=== PATIENT | male | born 1975 | race Caucasian/White ===

== ENCOUNTER → 2019-11-11 11:43 | Outpatient (CLI) | payer OTHER, SELFPAY ==
--- NOTE | 2019-11-11 | DI.MRI.S_ITS ---
PROCEDURE: MR LUMBAR SPINE WO CON INDICATIONS: Low back pain TECHNIQUE: Noncontrast sagittal T1 spin echo and T2 fast echo, sagittal STIR, axial T1 and T2 fast spin echo through the lumbar spine. In cases with scoliosis, additional coronal T2 fast spin echo may be performed. COMPARISON: [facility], CT, ABDOMEN/PELVIS WITH CONTRAST, 10/31/2016, 13:49. FINDINGS: Image quality: Diagnostic Alignment and Curvature: There is normal bony alignment. Bone Marrow: Marrow is of normal overall signal. No acute vertebral body compression fractures. Spinal Cord: Conus medullaris terminates at the L1 level. Visualized cord demonstrates normal signal and size. Paraspinous Soft Tissues: No paravertebral masses. T12-L1: Normal appearance. L1-L2: The disc height and disc signal are relatively well-preserved. There is a central/right disc protrusion, as on series 5 image 9. There is associated mild to moderate central canal narrowing. No significant neural foraminal narrowing is seen. L2-L3: No significant abnormality is seen. L3-L4: Level within normal limits. L4-L5: The disc height and disc signal are relatively well-preserved. Mild to moderate disc bulge is seen. Mild facet joint hypertrophy is seen. There is moderate right-sided and at least moderate left-sided neural foraminal narrowing seen. There is a degree of compression seen upon the exiting L4 nerve roots, left worse than right. Mild central canal narrowing is seen. L5-S1: Mild disc bulge is seen, with a mild central disc extrusion, with mild superior migration of the disc material. Mild facet joint hypertrophy is seen. Mild to moderate right-sided and at least moderate left-sided neural foraminal narrowing can be seen. There is a mild degree of compression seen upon the exiting left L5 nerve root. Mild to moderate central canal narrowing is seen. IMPRESSION: Focal L4-L5 and L5-S1 degenerative change. Focal central/right L1-L2 disc protrusion. Dictated by: Bj Malik M.D. on 11/11/2019 at 11:54 Approved by: Bj Malik M.D. on 11/11/2019 at 11:57
== END ==
PROVIDERS: PCP Nurse Practitioner Family; Visit Provider Nurse Practitioner Family
DX: M47.816 Spondylosis without myelopathy or radiculopathy, lumbar region (principal); M47.817 Spondylosis without myelopathy or radiculopathy, lumbosacral region; M51.26 Other intervertebral disc displacement, lumbar region
CPT/HCPCS: 72148

== ENCOUNTER 2023-11-03 07:30 | Outpatient (RCR) | payer OTHER, SELFPAY ==
--- NOTE | 2023-10-02 14:29 | OT.OP.EVAL ---
Visit Care Team Role Provider Type CHRISTOPHER Flannery Family Provider Non-Staff Primary Care Provider Specialty: Family Practice Address: [address] [address], [place], [address] Fax: Email: Win Patton MD Attending Provider Non-Staff Referring Provider Specialty: Orthopedic Surgery Address: [facility], [facility] [place], [address] Fax: Email: Occupational Therapy Initial Evaluation OT Outpatient Adult Evaluation Start: 10/02/23 13:59 Freq: Status: Active Protocol: Document 10/02/23 13:59 AMS (Rec: 10/02/23 14:29 AMS [id number]) General Information - Adult Visit Number Eval; 0/12 visits Plan of Care Dates 10/02/23 - 10/30/23 Insurance Information Prime; EVAL ONLY; * Auth 12 visits Visit Start Time 12:25 Visit Stop Time 13:00 Total Visit Minutes 35 Treatment Setting Outpatient Care Note Type Initial Evaluation Identification Confirmed Yes Identification Confirmed By Self Goals Assisted Goals 1. Lb will be modified independent with execution of home exercise program utilizing provided written and visual instructions from therapist. 2. Lb will present with increased ability to participate in meaningful activities, as evidenced by the followina. Lb will indicate 1 or less out of 10 on the pain scale relative to volar surface of R wrist. 2b. Lb will obtain a QuickDASH UE Outcome Measure score of 10.00 or less. 2c. Lb will obtain a QuickDASH UE Outcome Measure/ Work Module Score of 15.00 or less. Assessment/Plan Treatment Assessment Lb is a 48 year-old right hand dominant male referred to outpatient OT secondary to CTR (surgery was performed in late July). 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 Some discomfort w/ active WB noted, as well as some tactile sensitivities. Medical history is significant for L CTS, gout (med managed), and generalized pain/discomfort ( managed by taking Motrin). On the whole body Pain Assessment Grid, Lb indicated 1, 3-4/ 10 relative to volar R wrist pain/discomfort. QuickDASH UE Outcome Measure Score = 13.63; QuickDASH UE Work Module Score = 25.00. Denied participation in regular exercise routine/program. 60 degrees active bilateral wrist flex. 58 degrees active R wrist ext vs 62 degrees active L wrist ext. [address] active bilateral wrist [address]. 20 degrees active bilateral wrist UD. Dynamometer II publishing manager strength results w/ elbows in 90 degrees flexion: 52.0# of force R publishing manager vs 103.0# of force L publishing manager. Pinchometer strength test results: 22.5# of force R lateral silva pinch vs 22.0# of force L lateral silva pinch; 13.0# of force R tip pinch vs 16.0# of force L tip pinch; 20.0# of force R 3- jaw pinch vs 18.5# of force L 3-jaw pinch. Lb denied any concerns re: wrist weakness. Mild swelling at site of surgery; denied icing wrist. Denied any tightness/stiffness w/ tendon gliding. Outpatient OT is recommended to address mild swelling, weakness, and to establish home exercise program. Home Exercise Program 10/02/23 = Reviewed scar tissue mobilization. Instructed in passive wrist ext via forearm supination w/ wrist ext vs modified prayer pose w/ hold of 20 sec. Discussed use of gloves w/ gel pads and/or use of gel pad for active weight bearing. Length of treatment (weeks) 4 Plan of Care Start Date 10/02/23 Plan of Care End Date 10/30/23 Therapeutic Contents Active Range of Motion, Functional Activities,Home Exercise Program,Joint Protection,Manual Therapy, Education,Neurodevelopment Treatment,Neuromuscular Re- Education,Self-Care,Stretching /Flexibility Activities, Therapeutic Activities, Therapeutic Exercises, Modalities Modalities As Needed,As Prescribed Additional Types of Modalities Heat/Ice/Contrast baths/ Paraffin/Ultrasound Patient Recommendations Continue with Current Program, Advance per Rehabilitation Protocol
--- NOTE | 2023-10-07 15:14 | OT.OP.TRT ---
Visit Care Team Role Provider Type CHRISTOPHER Flannery Family Provider Non-Staff Primary Care Provider Specialty: Family Practice Address: [address] [address], [place], [address] Fax: Email: Win Patton MD Attending Provider Non-Staff Referring Provider Specialty: Orthopedic Surgery Address: [facility], [facility] [place], [address] Fax: Email: Occupational Therapy Treatment Note OT Outpatient Treatment Note - Adult Start: 10/02/23 13:59 Freq: Status: Active Protocol: Document 10/07/23 15:01 AMS (Rec: 10/07/23 15:13 [facility] [id number]) OT Outpatient Adult Treatment Note Session Time Visit Start Time 12:30 Visit Stop Time 13:00 Total Visit Minutes 30 Visit Information Visit Number 12/05 visits authorized Plan of Care Dates 10/02/23 - 10/30/23 Insurance Information Prime; EVAL ONLY; * Auth 12 visits Setting Treatment Setting Outpatient Care Visit Type Note Type Treatment Note General Information General Information Lb is a 48 year-old right hand dominant male referred to outpatient OT secondary to CTR (surgery was performed in late July). 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 Some discomfort w/ active WB noted, as well as some tactile sensitivities. Medical history is significant for L CTS, gout (med managed), and generalized pain/discomfort ( managed by taking Motrin). - Subjective Identification Type Name Identification Reconciled With Medical Record Observations (+) carry-over of scar tissue mobilization. Continued discomfort reported w/ weight bearing; crepitus reported of ulnar right wrist w/ active formation of fist w/ reported pain/discomfort w/ palpation between 4th and 5th digit metacarpals. Report of discomfort reproduction w/ MCPJ flex and IPJ ext. Patient/Caregiver Compliance with Home Excellent Exercise Program - Objective Objective Measurements Please refer to below for progress towards meeting established OT goals: Halfway Goals 1. Lb will be modified independent with execution of home exercise program utilizing provided written and visual instructions from therapist. 2. Lb will present with increased ability to participate in meaningful activities, as evidenced by the followina. Lb will indicate 1 or less out of 10 on the pain scale relative to volar surface of R wrist. 2b. Lb will obtain a QuickDASH UE Outcome Measure score of 10.00 or less. 2c. Lb will obtain a QuickDASH UE Outcome Measure/ Work Module Score of 15.00 or less. - Treatment 3 Descriptor Ice massage x 3 minutes. Discomfort reported; thus, treatment ceased. 2 Descriptor Scar tissue mobilization reviewed and completed by clinician. 1 Descriptor Ultrasound. Addressing inflammation/swelling at site of surgery. Skin intact pre- and post- treatment. Denial of pain/discomfort w/ modality use. Use of pulsed setting, 20 % duty cycle, 2.0w/cm2 x 10 minutes. - Assessment Assessment of Improvement (+) carry-over of scar tissue mobilization. (+) response to ultrasound treatment. Poor tolerance for ice massage; thus, treatment ceased. Recommend inquiring about any scar tissue sensitivities. Continued outpatient OT is recommended to address mild swelling, weakness, and to establish home exercise program; recommend transition to HEP if there are no ongoing complaints of distal UE weakness/hand weakness, scar sensitivities and/or an increase of pain/discomfort limiting functional use of the R hand and/or with participation in meaningful activities (w/ and/or in the workplace). Home Exercise Program 10/02/23 = Reviewed scar tissue mobilization. Instructed in passive wrist ext via forearm supination w/ wrist ext vs modified prayer pose w/ hold of 20 sec. Discussed use of gloves w/ gel pads and/or use of gel pad for active weight bearing. - Plan Therapy Recommendations Advance per Rehabilitation Protocol Additional Therapy Recommendations Transition to HEP
--- NOTE | 2023-11-03 14:28 | OT.OPPOC ---
Physical, Occupational & Speech Therapy At [facility] Lb Montoya [id number] 1975 Visit Care Team Role Provider Type CHRISTOPHER Flannery Family Provider Non-Staff Primary Care Provider Address: [address] [place] [address], [place], [address] Fax: Win Patton MD Attending Provider Non-Staff Referring Provider Address: [facility], [address] [place] [address], [id number] Fax: Occupational Therapy Plan of Care OT Outpatient Adult Evaluation Start: 10/02/23 13:59 Freq: Status: Active Protocol: Document 10/02/23 13:59 AMS (Rec: 10/02/23 14:29 [facility] [id number]) General Information - Adult Visit Information Visit Number Eval; 0/12 visits Plan of Care Dates 10/02/23 - 10/30/23 Insurance Information Prime; EVAL ONLY; * Auth 12 visits Session Time Visit Start Time 12:25 Visit Stop Time 13:00 Total Visit Minutes 35 Setting Treatment Setting Outpatient Care Visit Type Note Type Initial Evaluation Identification Identification Confirmed Yes Identification Confirmed By Self Goals Alf Goals Alf Goals 1. Lb will be modified independent with execution of home exercise program utilizing provided written and visual instructions from therapist. 2. Lb will present with increased ability to participate in meaningful activities, as evidenced by the followina. Lb will indicate 1 or less out of 10 on the pain scale relative to volar surface of R wrist. 2b. Lb will obtain a QuickDASH UE Outcome Measure score of 10.00 or less. 2c. Lb will obtain a QuickDASH UE Outcome Measure/ Work Module Score of 15.00 or less. Assessment/Plan Assessment Treatment Assessment bL is a 48 year-old right hand dominant male referred to outpatient OT secondary to CTR (surgery was performed in late July). 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 Some discomfort w/ active WB noted, as well as some tactile sensitivities. Medical history is significant for L CTS, gout (med managed), and generalized pain/discomfort ( managed by taking Motrin). On the whole body Pain Assessment Grid, Lb indicated 1, 3-4/ 10 relative to volar R wrist pain/discomfort. QuickDASH UE Outcome Measure Score = 13.63; QuickDASH UE Work Module Score = 25.00. Denied participation in regular exercise routine/program. 60 degrees active bilateral wrist flex. 58 degrees active R wrist ext vs 62 degrees active L wrist ext. [address] bilateral wrist [address]. 20 degrees active bilateral wrist UD. Dynamometer II slab inspector strength results w/ elbows in 90 degrees flexion: 52.0# of force R slab inspector vs 103.0# of force L slab inspector. Pinchometer strength test results: 22.5# of force R lateral silva pinch vs 22.0# of force L lateral silva pinch; 13.0# of force R tip pinch vs 16.0# of force L tip pinch; 20.0# of force R 3- jaw pinch vs 18.5# of force L 3-jaw pinch. Lb denied any concerns re: wrist weakness. Mild swelling at site of surgery; denied icing wrist. Denied any tightness/stiffness w/ tendon gliding. Outpatient OT is recommended to address mild swelling, weakness, and to establish home exercise program. Home Exercise Program 10/02/23 = Reviewed scar tissue mobilization. Instructed in passive wrist ext via forearm supination w/ wrist ext vs modified prayer pose w/ hold of 20 sec. Discussed use of gloves w/ gel pads and/or use of gel pad for active weight bearing. Plan Length of treatment (weeks) 4 Plan of Care Start Date 10/02/23 Plan of Care End Date 10/30/23 Therapeutic Contents Active Range of Motion, Functional Activities,Home Exercise Program,Joint Protection,Manual Therapy, Education,Neurodevelopment Treatment,Neuromuscular Re- Education,Self-Care,Stretching /Flexibility Activities, Therapeutic Activities, Therapeutic Exercises, Modalities Modalities As Needed,As Prescribed Additional Types of Modalities Heat/Ice/Contrast baths/ Paraffin/Ultrasound Patient Recommendations Continue with Current Program, Advance per Rehabilitation Protocol Functional Wrist/Hand Scan Hand Side Sensory Assessment Sensory Profile2 OT Outpatient Treatment Note - Adult Start: 10/02/23 13:59 Freq: Status: Active Protocol: Document 11/03/23 14:03 AMS (Rec: 11/03/23 14:28 AMS [id number]) OT Outpatient Adult Treatment Note Session Time Visit Start Time 07:40 Visit Stop Time 08:15 Total Visit Minutes 35 Visit Information Visit Number 2/12 visits authorized Plan of Care Dates 10/30/23 - 11/27/23 Insurance Information Prime; EVAL ONLY; * Auth 12 visits Setting Treatment Setting Outpatient Care Visit Type Note Type Progress Note General Information General Information Lb is a 48 year-old right hand dominant male referred to outpatient OT secondary to CTR (surgery was performed in late July). 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 Some discomfort w/ active WB noted, as well as some tactile sensitivities. Medical history is significant for L CTS, gout (med managed), and generalized pain/discomfort ( managed by taking Motrin). - Subjective Identification Type Name Identification Reconciled With Medical Record Observations (+) carry-over of scar tissue mobilization. Crepitus reported of ulnar right wrist w/ active formation of fist w/ reported pain/discomfort w/ palpation between 4th and 5th digit metacarpals. Report of discomfort reproduction w/ MCPJ flex and IPJ ext. QuickDASH UE Outcome Measure Score = 11.36; QuickDASH Work Module Score = 12.5; Hand/ Wrist Pain Assessment Grid completed w/ indication of 1/ 10 relative to volar medial surface of R palm/at site of scar/surgery and between 4th adn 5th digit metacarpals. Patient/Caregiver Compliance with Home Excellent Exercise Program - Objective Objective Measurements Please refer to below for progress towards meeting established OT goals: Alf Goals 1. Lb will be modified independent with execution of home exercise program utilizing provided written and visual instructions from therapist. 11/03/23 = 75% met 2. Lb will present with increased ability to participate in meaningful activities, as evidenced by the followina. Lb will obtain a QuickDASH UE Outcome Measure score of 10.00 or less. = Score = 11.36 2c. Lb will obtain a QuickDASH UE Outcome Measure/ Work Module Score of 15.00 or less. 11/03/23 = Score = 12.5 GOALS MET Lb will indicate 1 or less out of 10 on the pain scale relative to volar surface of R wrist. *MET 11/03/23 - Treatment 3 Descriptor Ice massage x 3 minutes. 2 Descriptor Scar tissue mobilization. Discussed use of spherical object and/or massage tool (as used in treatment session). 1 Descriptor Ultrasound. Addressing inflammation/swelling at site of surgery. Skin intact pre- and post- treatment. Denial of pain/discomfort w/ modality use. Use of pulsed setting, 20 % duty cycle, 2.0w/cm2 x 10 minutes. - Assessment Assessment of Improvement Lb has made progress since time of initial evaluation; he is presenting with decreased pain/discomfort (1/10 versus 1 ,3-4/10); increased ability to participate in meaningful and functional tasks w/ use of the R hand (QuickDASH UE Outcome Measure Score = 11.36 vs initial 13.63; QuickDASH UE Work Module Score = 12.5 vs initial 25.00); and increased slab inspector strength (82.0# of force R slab inspector versus initial 52.0# of force and 123.0# of force L slab inspector versus initial 103.0# of force). He is actively utilizing the R hand on a daily basis and is executing scar tissue mobilization. Lb has positively responded to ultrasound modality use and has requested follow-up treatment post- holidays given busy schedule. Home Exercise Program 11/03/23= Discussed consideration of contrast baths for swelling management, as well as use of ball/half ball massage tool for scar tissue mobilization. 10/02/23 = Reviewed scar tissue mobilization. Instructed in passive wrist ext via forearm supination w/ wrist ext vs modified prayer pose w/ hold of 20 sec. Discussed use of gloves w/ gel pads and/or use of gel pad for active weight bearing. - Plan Therapy Recommendations Advance per Rehabilitation Protocol Additional Therapy Recommendations Transition to HEP Comment 4 weeks Frequency of Treatment Once a Week Electronically Signed by: Lay Jernigan OT 11/03/23 8165 If you are in agreement with this Plan of Care, please return a signed and dated copy. I have reviewed this Plan of Care and certify that the skilled therapy services above are required to meet the patient?s needs. Physician Signature Date Printed Name and Credentials Clinical Instructor Signature Printed Name and Credentials
--- NOTE | 2023-12-05 09:29 | OT.OP.DC ---
Visit Care Team Role Provider Type CHRISTOPHER Flannery Family Provider Non-Staff Primary Care Provider Address: [address] [address], [place], [address] Fax: Email: Win Patton MD Attending Provider Non-Staff Referring Provider Address: [facility], [facility] [address], [place], [address] Fax: Email: OT Outpatient OT Outpatient Adult Evaluation Start: 10/02/23 13:59 Freq: Status: Active Protocol: Document 10/02/23 13:59 AMS (Rec: 10/02/23 14:29 AMS [id number]) General Information - Adult Visit Information Visit Number Eval; 0/12 visits Plan of Care Dates 10/02/23 - 10/30/23 Insurance Information Prime; EVAL ONLY; * Auth 12 visits Session Time Visit Start Time 12:25 Visit Stop Time 13:00 Total Visit Minutes 35 Setting Treatment Setting Outpatient Care Visit Type Note Type Initial Evaluation Identification Identification Confirmed Yes Identification 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 Lb will be modified independent with execution of home exercise program utilizing provided written and visual instructions from therapist. 2. Lb will present with increased ability to participate in meaningful activities, as evidenced by the followina. Lb will indicate 1 or less out of 10 on the pain scale relative to volar surface of R wrist. 2b. Lb will obtain a QuickDASH UE Outcome Measure score of 10.00 or less. 2c. Lb will obtain a QuickDASH UE Outcome Measure/ Work Module Score of 15.00 or less. Assessment/Plan Assessment Treatment Assessment Lb is a 48 year-old right hand dominant male referred to outpatient OT secondary to CTR (surgery was performed in late July). 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 Some discomfort w/ active WB noted, as well as some tactile sensitivities. Medical history is significant for L CTS, gout (med managed), and generalized pain/discomfort ( managed by taking Motrin). On the whole body Pain Assessment Grid, Lb indicated 1, 3-4/ 10 relative to volar R wrist pain/discomfort. QuickDASH UE Outcome Measure Score = 13.63; QuickDASH UE Work Module Score = 25.00. Denied participation in regular exercise routine/program. 60 degrees active bilateral wrist flex. 58 degrees active R wrist ext vs 62 degrees active L wrist ext. [address] active bilateral wrist RD. 20 degrees active bilateral wrist UD. Dynamometer II sand hauler strength results w/ elbows in 90 degrees flexion: 52.0# of force R sand hauler vs 103.0# of force L sand hauler. Pinchometer strength test results: 22.5# of force R lateral silva pinch vs 22.0# of force L lateral silva pinch; 13.0# of force R tip pinch vs 16.0# of force L tip pinch; 20.0# of force R 3- jaw pinch vs 18.5# of force L 3-jaw pinch. Lb denied any concerns re: wrist weakness. Mild swelling at site of surgery; denied icing wrist. Denied any tightness/stiffness w/ tendon gliding. Outpatient OT is recommended to address mild swelling, weakness, and to establish home exercise program. Home Exercise Program 10/02/23 = Reviewed scar tissue mobilization. Instructed in passive wrist ext via forearm supination w/ wrist ext vs modified prayer pose w/ hold of 20 sec. Discussed use of gloves w/ gel pads and/or use of gel pad for active weight bearing. Plan Length of treatment (weeks) 4 Plan of Care Start Date 10/02/23 Plan of Care End Date 10/30/23 Therapeutic Contents Active Range of Motion, Functional Activities,Home Exercise Program,Joint Protection,Manual Therapy, Education,Neurodevelopment Treatment,Neuromuscular Re- Education,Self-Care,Stretching /Flexibility Activities, Therapeutic Activities, Therapeutic Exercises, Modalities Modalities As Needed,As Prescribed Additional Types of Modalities Heat/Ice/Contrast baths/ Paraffin/Ultrasound Patient Recommendations Continue with Current Program, Advance per Rehabilitation Protocol Functional Wrist/Hand Scan Hand Side Sensory Assessment Sensory Profile2 OT Outpatient Treatment Note - Adult Start: 10/02/23 13:59 Freq: Status: Active Protocol: Document 12/05/23 09:26 [facility] (Rec: 12/05/23 09:29 [facility] [id number]) OT Outpatient Adult Treatment Note Visit Information Visit Number 01/05 visits authorized Plan of Care Dates 10/30/23 - 11/27/23 Insurance Information Prime; EVAL ONLY; * Auth 12 visits Setting Treatment Setting Outpatient Care Visit Type Note Type Discharge Summary General Information General Information Lb is a 48 year-old right hand dominant male referred to outpatient OT secondary to CTR (surgery was performed in late July). 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 Some discomfort w/ active WB noted, as well as some tactile sensitivities. Medical history is significant for L CTS, gout (med managed), and generalized pain/discomfort ( managed by taking Motrin). - Subjective Observations Lb has not been seen in the outpatient setting by OT since 11/03/23 and outpatient OT POC 11/27/23. Thus, recommend d/c from outpatient OT and re-evaluate as deemed appropriate by PCP w/ receipt of new referral. - Objective Objective Measurements Please refer to below for progress towards meeting established OT goals: [facility] Goals ALL GOALS D/C 12/05/23 1. Lb will be modified independent with execution of home exercise program utilizing provided written and visual instructions from therapist. 11/03/23 = 75% met 2. Lb will present with increased ability to participate in meaningful activities, as evidenced by the followina. Lb will obtain a QuickDASH UE Outcome Measure score of 10.00 or less. = Score = 11.36 2c. Lb will obtain a QuickDASH UE Outcome Measure/ Work Module Score of 15.00 or less. 11/03/23 = Score = 12.5 GOALS MET Lb will indicate 1 or less out of 10 on the pain scale relative to volar surface of R wrist. *MET 11/03/23 - - Assessment Assessment of Improvement Lb has not been seen in the outpatient setting by OT since 11/03/23 and outpatient OT POC 11/27/23. Thus, recommend d/c from outpatient OT and re-evaluate as deemed appropriate by PCP w/ receipt of new referral. Home Exercise Program 11/03/23= Discussed consideration of contrast baths for swelling management, as well as use of ball/half ball massage tool for scar tissue mobilization. 10/02/23 = Reviewed scar tissue mobilization. Instructed in passive wrist ext via forearm supination w/ wrist ext vs modified prayer pose w/ hold of 20 sec. Discussed use of gloves w/ gel pads and/or use of gel pad for active weight bearing. - Plan Therapy Recommendations Discharge from Occupational Therapy
== END 2023-12-08 14:49 | disposition home or self-care (01) ==
LOC: OT 07:30
PROVIDERS: Family Provider Nurse Practitioner Family; PCP Nurse Practitioner Family; Referring Provider Orthopaedic Surgery; Visit Provider Orthopaedic Surgery
DX: G56.03 Carpal tunnel syndrome, bilateral upper limbs (principal); R53.1 Weakness
CPT/HCPCS: 97035; 97110; 97165

== ENCOUNTER → 2024-07-23 11:55 | Outpatient (CLI) | payer OTHER, SELFPAY ==
--- NOTE | 2024-07-23 11:57 | DI.US.S_ITS ---
PROCEDURE: US ABDOMEN LIMITED INDICATIONS: ELEVATED LIVER FUNCTION TESTS TECHNIQUE: Real-time scanning was performed of the abdominal and retroperitoneal organs, with image documentation. COMPARISON: [facility], , ABDOMEN LIMITED, 10/31/2016, 14:40. FINDINGS: Liver: Liver is enlarged measuring 19 3 cm. The liver is increased in echogenicity. Gallbladder: No gallstones. No wall thickening. No pericholecystic edema. Negative sonographic Ramires's sign. Biliary ducts: Intrahepatic bile ducts are non-dilated. Extrahepatic bile duct caliber measures 3.6 mm. Normal is 6-7 mm or less in diameter, or 10 mm or less post-cholecystectomy. Pancreas: Visualized portions of the pancreas are sonographically normal. Pancreatic tail is not well seen. Miscellaneous: No free abdominal fluid. IMPRESSION: Liver is enlarged with increased echogenicity, most consistent with hepatic steatosis. Dictated by: Bala Quick M.D. on 07/23/2024 at 13:07 Approved by: Bala Quick M.D. on 07/23/2024 at 13:08
== END ==
PROVIDERS: Family Provider Nurse Practitioner Family; Referring Provider Physician Assistant; Visit Provider Physician Assistant
DX: R74.8 Abnormal levels of other serum enzymes (principal); R16.0 Hepatomegaly, not elsewhere classified
CPT/HCPCS: 76705

== ENCOUNTER 2024-10-24 14:11 | Emergency (ER) | payer OTHER, SELFPAY ==
[2024-10-24 14:12] VITALS: BP 159/99; PULSE 69; RESP 16; TEMP 36.6; O2SAT 97; BMI 41.3
--- NOTE | 2024-10-24 14:19 | ED_ITS ---
HPI - Back Pain/Injury <Renae Rodríguez PA-C - Last Filed: 10/24/24 15:33> General Chief Complaint: Back Pain/Injury Stated Complaint: back px Time Seen by Provider: 10/24/24 14:19 History of Present Illness HPI Narrative: 49-year-old male presents with acute low back pain. Apparently 5 days ago he was trying to remove a tree tugging it from his yd and he felt a popping sensation, he points to his lower back. He states it improved over the last couple of days but then again this morning he ?threw his back out again bending over?. He is denying any numbness, tingling, loss of sensation, weakness. He points to the lumbar sacral area right side greater than the left. He states he is retired [employer] and apparently had x-rays during his discharge that showed a wedge involving his L5-S1 with degenerative changes and possibly loss of disc height. He has had no surgeries, this feels similar to his previous back strains. He did not try any ice but he did use some heat, he also took 1600 mg of ibuprofen today along with Tylenol. He reports no issues with bowel or bladder. Pain is reproducible with movement in particular leaning forward. He is denying any radiation of symptoms down his buttocks thigh leg or foot. He denies any history of kidney stones, at no time has he described any chest pain, abdominal pain. His only prescription medications are allopurinol for gout, Zyrtec for allergies, [id number] turmeric and multivitamins. All other systems reviewed and are negative. Related Data Previous Rx's Medication Instructions Recorded cyclobenzaprine 10 mg tablet 10 mg PO TID PRN muscle spasm #20 10/24/24 tabs prednisone 20 mg tablet 40 mg (2 x 20 mg) PO DAILY #10 tabs 10/24/24 Allergies Allergy/AdvReac Type Severity Reaction Status Date / Time No Known Allergies Allergy Uncoded 03/04/18 12:36 Review of Systems <Renae Rodríguez PA-C - Last Filed: 10/24/24 15:33> Review of Systems Narrative: All other systems reviewed and are negative. Exam <Renae Rodríguez PA-C - Last Filed: 10/24/24 15:33> Initial Vital Signs Initial Vital Signs: Vital Signs Temperature 97.9 F 10/24/24 14:12 Pulse Rate 69 10/24/24 14:12 Respiratory Rate 16 10/24/24 14:12 Blood Pressure 159/99 H 10/24/24 14:12 Pulse Oximetry 97 10/24/24 14:12 Oxygen Delivery Method Room Air 10/24/24 14:12 Vital signs reviewed and are normal except for elevated blood pressure reading today. Const Other: Smiling, pleasantly conversing, uncomfortable appearing but able to rise from a seated position without difficulty, he is able to ambulate and has full weightbear but walks gingerly. No footdrop. Neck Neck: normal visual inspection and full ROM Resp Effort & Inspection: normal respiratory effort and able to speak in complete sentences Cardio Rate: regular rate Rhythm: regular rhythm GI Inspection: normal to inspection, obesity and striae Back/Spine/Pelvis Other: No discoloration, swelling, rash. No focal bony midline tenderness or interspace tenderness along his lumbar sacral spine. No tenderness involving the piriformis, gluteus, or sciatic notch. Mild tightness noted to the ITB band right greater than left. Hamstrings are normal. Active range of motion is limited with the back due to pain. He is able to demonstrate almost full extension, forward flexion reaching his fingertips to the level of his mid thigh. Lateral bending and rotation also cause him some discomfort but able to perform slightly. No guarding. He is negative for straight leg raise bilateral ly passively as well as actively. Skin General: no rashes or lesions noted, elasticity normal and turgor normal Neuro DTR's: Rt Patellar: 2+, Lt Patellar: 2+, Rt Ankle: 1+ and Lt Ankle: 1+ Plantar Reflexes: Downgoing: right and left Other: Distal neurovascular is grossly intact. Normal pulses that are equal. No focal neurologic deficits on examination. Rectal exam declined. Extrem Other: Ambulates, full weightbear. <Usha Bassett, DO - Last Filed: 10/24/24 17:03> Initial Vital Signs Initial Vital Signs: Vital Signs Temperature 97.9 F 10/24/24 14:12 Pulse Rate 69 10/24/24 14:12 Respiratory Rate 16 10/24/24 14:12 Blood Pressure 159/99 H 10/24/24 14:12 Pulse Oximetry 97 10/24/24 14:12 Oxygen Delivery Method Room Air 10/24/24 14:12 Course <Renae Rodríguez PA-C - Last Filed: 10/24/24 15:33> Vital Signs Vital signs: Vital Signs - 8 hr 10/24/24 14:12 Temperature 97.9 F Pulse Rate 69 Respiratory Rate 16 Blood Pressure 159/99 H Pulse Oximetry 97 Oxygen Delivery Method Room Air <Usha Tian SerjioDO - Last Filed: 10/24/24 17:03> Vital Signs Vital signs: Vital Signs - 8 hr 10/24/24 14:12 Temperature 97.9 F Pulse Rate 69 Respiratory Rate 16 Blood Pressure 159/99 H Pulse Oximetry 97 Oxygen Delivery Method Room Air MDM - Back Pain/Injury <Renae Rodríguez PA-C - Last Filed: 10/24/24 15:33> MDM Narrative Medical decision making narrative: Exam, history, all consistent with musculoskeletal back pain, no focal neurologic findings. He already took oral ibuprofen and an excessive dose which we discussed so we opted not to use any additional Toradol. We discussed the use of anti-inflammatories in the proper dosing to achieve blood levels, adding Tylenol [id number] intermittently, the use of ice 10-15 minutes at a time directly over his lower back several times a day, we discussed body mechanics at length, proper lifting technique, avoidance of re-injury or new injury, contributing factors include deconditioned state and decreased core strength. I have prescribed him a muscle relaxant, Flexeril, as well as a prednisone burst 40 mg daily for 5 days taken with food. Please follow up with your PCP, if additional imaging is warranted that we will need to come from your PCP. Physical therapy is also generally a good idea for core strengthening and injury prevention. Red flag warning signs are reviewed in detail. Seek medical attention if you have any issues with bowel or bladder, any weakness, footdrop, numbness, or any other worrisome symptoms, worsening pain do not hesitate to return to the emergency department or go to the nearest medical facility. I have asked him to recheck his blood pressure once his pain has resolved and of course follow up with his regular healthcare provider if it remains elevated. Discharge Plan Departure Patient Disposition: Home Clinical Impression: Acute low back pain Qualifiers: Back pain laterality: bilateral Sciatica presence: without sciatica Qualified Code(s): M54.50 - Low back pain, unspecified Instructions: DI for Back Strain or Sprain Activity Restrictions/Additional Instructions: Please do follow up with your PCP at the [facility], you may benefit from physical therapy, if you do need additional imaging such as MRI your PCP will be able to order that, I highly recommend that you add ice to your regular routine, apply directly to your area of pain 10-15 minutes at a time several times per day, I have prescribed you a muscle relaxant use caution as it can cause sedation also prednisone steroid which can give you a little boosted energy please take with food. Regarding your ibuprofen 800 mg is the absolute maximum single dose and can be taken every 8 hours with food. It is just to rough on your kidneys and liver to be taken at excessive doses. Tylenol can be taken 1 g every 4 hours not to exceed 4000 mg in a 24 hour. You may alternate heat, hot shower, we discussed body mechanics please avoid bending from the waist if you do need to lift anything make sure you have good alignment look up at the trinh before lifting. Avoid twisting, please keep her activity light, avoid stiffness however and remain active, please do not hesitate to return to the emergency department if you have any worsening symptoms or any new worrisome symptoms. Prescriptions: New cyclobenzaprine 10 mg tablet 10 mg PO TID PRN (Reason: muscle spasm) Qty: 20 0RF prednisone 20 mg tablet 40 mg PO DAILY Qty: 10 0RF Referrals: ProviderConner [Primary Care Provider] - Stand Alone Forms: Patient Portal/API/Survey, Work Release Note ED Sign-out <Usha Bassett DO - Last Filed: 10/24/24 17:03> Cosign ED Attending Noel Attestation: I was immediately available in the department for consultation.
--- NOTE | 2024-10-24 14:40 | PC.NURSE ---
Pt states he was pulling at a root/tree approx 5 days ago when he felt a pop in his back. Pt states he got better but now is feeling increasing pain. 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 Pt educated to NOT TAKE THAT MUCH at once of OTC pain medications. Pt able to move lower extremities; all reflexes in tact. No loss of bladder or bowel.
== END 2024-10-24 15:12 | disposition home or self-care (01) ==
PROVIDERS: Emergency Provider Physician Assistant Medical; Family Provider Nurse Practitioner Family
DX: M54.50 Low back pain, unspecified (principal)
CPT/HCPCS: 99281

== ENCOUNTER → 2024-11-04 15:34 | Outpatient (CLI) | payer OTHER, SELFPAY ==
--- NOTE | 2024-11-04 | DI.MRI.S_ITS ---
PROCEDURE: MR LUMBAR SPINE WO CON INDICATIONS: low back pain, unspecified TECHNIQUE: Noncontrast sagittal T1 spin echo and T2 fast echo, sagittal STIR, and T2 fast spin echo through the lumbar spine. In cases with scoliosis, additional coronal T2 fast spin echo may be performed. COMPARISON: [facility], MR, MR LUMBAR SPINE WO CON, 11/11/2019, 11:55. FINDINGS: Image quality: Excellent. Alignment and Curvature: There is normal bony alignment. Bone Marrow: Marrow is of normal overall signal. No acute vertebral body compression fractures. Spinal Cord: Conus medullaris terminates at the L1 level. Visualized cord demonstrates normal signal and size. Paraspinous Soft Tissues: No paravertebral masses. T12-L1: Normal appearance. L1-L2: Disc desiccation is seen. Central disc herniation with mild to moderate central canal stenosis, no significant neural foraminal narrowing. L2-L3: There is disc desiccation. Mild broad-based disc bulge with effacement of thecal sac anteriorly. Bilateral facet arthrosis is seen. Mild left-sided neural foraminal narrowing is seen. L3-L4: There is disc desiccation. Broad-based disc bulge and bilateral facet arthrosis with hypertrophy of ligamentum flavum. No significant central canal stenosis. [id number] left-sided neural foraminal narrowing and mild right-sided neural foraminal narrowing is seen. Bulging disc likely contacting left L3 nerve root. L4-L5: Disc desiccation and loss of disc height. Broad-based disc bulge and bilateral facet arthrosis causing [id number] central canal stenosis, severe left-sided neural foraminal narrowing and moderate right-sided neural foraminal narrowing. Bulging disc is seen contacting bilateral L4 nerve roots. L5-S1: Disc desiccation and loss of disc height. Broad-based disc bulge and central disc herniation with bilateral facet arthrosis. Mild to moderate central canal stenosis and moderate to severe bilateral neural foraminal narrowing worse on the left side. Bulging disc likely contacting bilateral L5 nerve roots. IMPRESSION: 1. Degenerative disc bulge and bilateral facet arthrosis throughout lumbar spine causing various degrees of central canal stenosis and bilateral neural foraminal narrowing as described above, progressed since 2019 study. 2. No marrow edema. No acute compression fracture. No gross paraspinous soft tissue abnormalities. Dictated by: Viet Babb M.D. on 11/04/2024 at 18:21 Approved by: Viet Babb M.D. on 11/04/2024 at 18:25
== END ==
LOC: MRI 15:34
PROVIDERS: Family Provider Nurse Practitioner Family; PCP Nurse Practitioner Family; Referring Provider Nurse Practitioner Family; Visit Provider Nurse Practitioner Family
DX: M51.360 Other intervertebral disc degeneration, lumbar region with discogenic back pain only (principal); M51.370 Other intervertebral disc degeneration, lumbosacral region with discogenic back pain only; M47.816 Spondylosis without myelopathy or radiculopathy, lumbar region; M47.817 Spondylosis without myelopathy or radiculopathy, lumbosacral region; M48.061 Spinal stenosis, lumbar region without neurogenic claudication; M48.07 Spinal stenosis, lumbosacral region; G83.10 Monoplegia of lower limb affecting unspecified side; R20.2 Paresthesia of skin
CPT/HCPCS: 72148